=== PATIENT | male | born 1945 | race Caucasian/White ===

== ENCOUNTER 2017-02-23 13:45 | Day surgery (SDC) | payer MEDICARE ==
--- NOTE | 2016-11-24 08:01 | PCM.HPANE ---
Patient Data Surgeon Admitting Provider: Attending Provider:Justice Mason MD Primary Care Physician:Maya Alvarez MD Other Provider:[facility] Reason for Visit Linda's Esophagus Ht/WT & BMI Body Mass Index Allergies Coded Allergies: No Known Drug Allergies (Verified Allergy, Unknown, 10/29/16) Past Anesthesia History Anesthesia History: Denies:: Abnormal Airway, Anesthesia Reactions, Difficult Intubation, Fam Anesthesia Reaction, Fam Malignant Hypertherm, Malignant Hyperthermia Diabetes History Hx Diabetes?: No MRSA MRSA: No Medications Reported Medications Tizanidine 2 Mg Capsule2 Mg PO BID 10/30/16 Oxycodone ER (Oxycontin)10 Mg Tab.er.12h10 Mg PO BID 10/30/16 Hydrochlorothiazide 25 Mg Zntdey33 Mg PO DAILY 30 Days Ref 0 10/30/16 Levothyroxine (Tirosint)13 Mcg Huzwlby32 Mcg PO DAILY 10/29/16 oxyCODONE 5 Mg Qcpzpzs87 Mg PO Q4H PRN For Pain Ref 0 10/29/16 Omeprazole 20 Mg Capsule.dr20 Mg PO DAILY Ref 0 10/29/16 Lisinopril 20 Mg Roxtua52 Mg PO DAILY 30 Days Ref 0 10/29/16 History HEENT History: Denies:: Abnormal Airway Difficult Intubation Dysphagia Cardiovascular History: Positive for:: Hypertension Denies:: Pacemaker Hx of Respiratory Problem?: No Neurological History: Denies:: CVA Gastrointestinal History: Positive for:: Gastroesphageal Reflux Denies:: Hiatal Hernia Hx Surgeries?: Yes (T&A, CHOLY) Hx Any Other Health Problems?: No Hx Diabetes: No Hx Alcohol Use: No Stop/Bang Risk Assessment Category Category 1A: Patient has history of documented sleep apnea, and HAS NOT received any narcotic, sedative or anesthesia administration during this stay. Category 1B: Patient has history of documented sleep apnea, and HAS received any narcotic , sedative or anesthesia administration during this stay Category 2: Patient has SUSPECTED Obstructive Sleep Apnea, and HAS received any narcotic , sedative or anesthesia administration during this stay. Category 3: Patient has SUSPECTED Obstructive Sleep Apnea and HAS NOT received narcotic, sedative or anesthesia administration during this stay. Category 4: Outpatient in Procedural Areas with known sleep apnea or who screen positive for High Risk via the STOP/BANG questionnaire. Plan Impression Patient chart reviewed, patient interviewed and anesthestic plan with risks, benefits, and alternatives discussed, and informed consent obtained. Other case cancelled by Endo. Pt apparently has no post procedure accompanyment Alejandra Salcedo MD Nov 24, 2016 08:01
[~2017-02-23] VITALS: Ht 185.4 cm; Wt 120.0 kg
[~2017-02-23 13:45] MED LIST: LEVO13CA2 PO; LISI-567 PO; Lactated Ringer's 1,000 ML IV ONE; OMEP20CA11 PO; OXYC10TA69 PO; OXYC5CAP4 PO
[2017-02-23] MEDS ORDERED: Propofol 10,000 mCg/mL 20 mL Inj ONE (13:46)
[2017-02-23 14:58] VITALS: BP 164/95; PULSE 86; RESP 16; O2SAT 96
[2017-02-23] MEDS ORDERED: Lactated Ringer's 1,000 ML IV SCH (15:14)
[2017-02-23] MEDS ORDERED: MetoCLOpramide 5 mg/mL 2 mL Inj IVPUSH PRN (15:15)
[2017-02-23] MEDS ORDERED: Ondansetron 2 mg/mL 2 mL Inj IVPUSH PRN (15:15)
[2017-02-23 15:26] VITALS: BP 107/71; PULSE 82; RESP 12; O2SAT 93
[2017-02-23 15:40] VITALS: BP 125/77; PULSE 77; RESP 16; O2SAT 91
[2017-02-23 15:46] VITALS: BP 155/98; PULSE 88; RESP 16; O2SAT 95
--- NOTE | 2017-02-23 16:32 | PCM.HPANE ---
Patient Data Surgeon Admitting Provider: Attending Provider:Justice Mason MD Primary Care Physician:Maay Alvarez MD Other Provider:[facility] Reason for Visit Linda's Esophagus Ht/WT & BMI Body Mass Index Allergies Coded Allergies: No Known Drug Allergies (Verified Allergy, Unknown, 02/23/17) Past Anesthesia History Anesthesia History: Denies:: Abnormal Airway, Anesthesia Reactions, Difficult Intubation, Fam Anesthesia Reaction, Fam Malignant Hypertherm, Malignant Hyperthermia Diabetes History Hx Diabetes?: No MRSA MRSA: No Medications Reported Medications Oxycodone ER (Oxycontin)10 Mg Tab.er.12h10 Mg PO BID 10/30/16 Levothyroxine (Tirosint)13 Mcg Ilfxsci01 Mcg PO DAILY 10/29/16 oxyCODONE 5 Mg Yzhqcow32 Mg PO Q4H PRN For Pain Ref 0 10/29/16 Omeprazole 20 Mg Capsule.dr40 Mg PO DAILY Ref 0 10/29/16 Lisinopril 20 Mg Ownhka73 Mg PO DAILY 30 Days Ref 0 10/29/16 Discontinued Reported Medications Tizanidine 2 Mg Capsule2 Mg PO BID 10/30/16 Hydrochlorothiazide 25 Mg Dgpyno94 Mg PO DAILY 30 Days Ref 0 10/30/16 History HEENT History: Denies:: Abnormal Airway Difficult Intubation Dysphagia Cardiovascular History: Positive for:: Hypertension Denies:: Pacemaker Hx of Respiratory Problem?: No Neurological History: Denies:: CVA Gastrointestinal History: Positive for:: Gastroesphageal Reflux Denies:: Hiatal Hernia Hx Surgeries?: Yes (T&A, CHOLY) Hx Any Other Health Problems?: No Hx Diabetes: No Hx Alcohol Use: No Stop/Bang Risk Assessment Category Category 1A: Patient has history of documented sleep apnea, and HAS NOT received any narcotic, sedative or anesthesia administration during this stay. Category 1B: Patient has history of documented sleep apnea, and HAS received any narcotic , sedative or anesthesia administration during this stay Category 2: Patient has SUSPECTED Obstructive Sleep Apnea, and HAS received any narcotic , sedative or anesthesia administration during this stay. Category 3: Patient has SUSPECTED Obstructive Sleep Apnea and HAS NOT received narcotic, sedative or anesthesia administration during this stay. Category 4: Outpatient in Procedural Areas with known sleep apnea or who screen positive for High Risk via the STOP/BANG questionnaire. Exam Exam General Appearance: Alert, Oriented X3, Cooperative, No Acute Distress HEENT/AIRWAY: MP 2, Neck Movement (FROM), Mouth Opening (3 FBMO) Lungs: Clear to Auscultation, Normal Air Movement Heart: Exam Unremarkable, Regular Rate/Rhythm, No Murmurs/Rubs/Gallops Plan Impression Patient chart reviewed, patient interviewed and anesthestic plan with risks, benefits, and alternatives discussed, and informed consent obtained. NPO Status: > 8 hrs ASA Physical Status: ASA3 Severe Disease (increase BMI) Anesthetic Plan: MAC Bene/Risks/Altern/Consents: Yes Carlos Victor MD Feb 23, 2017 07:21
--- NOTE | 2017-02-23 16:32 | PCM.ANEP1 ---
Post Anesthesia Phase 1 PACU Phase 1 Assessment Vital Signs Vital Signs Date Time Temp Pulse Resp B/P Pulse Ox O2 Delivery O2 Flow Rate FiO2 02/23/17 15:46 88 16 155/98 95 Room Air 02/23/17 15:40 77 16 125/77 91 Room Air 02/23/17 15:26 36.2 82 12 107/71 93 Room Air 02/23/17 14:58 36.5 86 16 164/95 96 Room Air Anesthetic Administered: MAC Level of Alertness: Awake, talking PAYNE's with Equal Strength: Yes Pain: No Nausea or Vomiting: No Cardiovascular Function and Hy: Yes Oxygen Delivery: Room Air Lungs: Clear to Auscultation, Normal Air Movement Dermatome Level: Full Sensation Complications: No Follow up Care: No Carlos Victor MD Feb 23, 2017 16:32
--- NOTE | 2017-02-23 20:27 | ENDO ---
[address] [address] ENDOSCOPY PROCEDURE PATIENT: TAZ GROVES : 1945 MR#: [id number] ADMIT: 02/23/2017 JOB ID: [id number] TYPE OF OPERATION: Esophagogastroduodenoscopy, biopsy. PREOPERATIVE DIAGNOSIS: Linda's esophagus. POSTOPERATIVE DIAGNOSES): 1. 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 ANESTHESIA: Monitored anesthesia care. COMPLICATIONS: None. BLOOD LOSS: Minimal. DESCRIPTION OF PROCEDURE: After risks and benefits explained to the patient, informed consent was obtained. After anesthesia administered, upper endoscope was inserted in mouth, intubated into the esophagus, stomach, second portion of duodenum. Mucosa carefully examined. After the procedure was done, the scope withdrawn, procedure terminated. FINDINGS: Upon inspection of the esophagus, there was irregular Z-line that was seen from 33-40 cm from the incisors. No masses or ulcers were seen. Four quadrant biopsies were performed at this region. Upon entering the stomach, stomach was normal without masses, ulcers, or lesions. On retroflexion, duodenal bulb, first and second portion were normal. 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 RECOMMENDATIONS: Await pathology results. Continue proton pump inhibitor. If no dysplasia, then repeat EGD in three years.
--- NOTE | 2017-02-25 19:34 | PATH ---
SURGICAL PATHOLOGY Attending Physician:Justice Mason MD CASE STATUS: Signed Out PATIENT NAME: TAZ GROVES PID: [id number] : 1945 DATE COLLECTED:02/23/2017 00:00 SPECIMEN: Esophagus, Biopsy CLINICAL HISTORY: 1). DISTAL ESOPHAGUS BIOPSY FINAL DIAGNOSIS: Distal Esophagus, Biopsy: Inflamed gastric cardiac and cardiofundal mucosa with metaplastic columnar epithelium. Negative for dysplasia and malignancy. No squamous mucosa is present for evaluation. Please see comment. ICD10: K22.7 NOTE: These findings could be consistent with Linda's esophagus, in the appropriate clinical setting. GROSS DESCRIPTION: The specimen is received in one formalin filled container labeled with the patient's name, sublabeled "distal esophagus" and consists of 2 portions of tissue which aggregate to 0.3 x 0.3 x 0.2 CM. The specimen is entirely submitted in one cassette. 02/24/2017 [facility] ICD-9 CODES: CPT CODES: 1: 49860 Electronically Signed Out Kathryn Villalta MD [facility] [address], [place] [address] Technical component performed at [facility], [address] [place] [address] [address], [place], [address]
== END 2017-02-23 23:59 | disposition home or self-care (01) ==
LOC: END 13:45
PROVIDERS: ATTEND Internal Medicine Gastroenterology
DX: K22.70 Barrett's esophagus without dysplasia (principal); K21.9 Gastro-esophageal reflux disease without esophagitis; I10 Essential (primary) hypertension; K85.90 Acute pancreatitis without necrosis or infection, unspecified
CPT/HCPCS: 43239; 88305; J7120